=== PATIENT | female | born 1955 | race Caucasian/White ===

== ENCOUNTER → 2017-04-12 | Outpatient (CLI) | payer OTHER ==
[2017-01-10 12:09] VITALS: BP 137/69
[2017-04-12 11:18] LABS: ALANINE AMINOTRANSFERASE 38 Units/L (12-78); ALBUMIN 1.8 g/dL (3.4-5.0); ALKALINE PHOSPHATASE 133 Units/L (46-116); ASPARTATE AMINO TRANSFERASE 61 Units/L (15-37); BILIRUBIN,DIRECT 0.28 mg/dL (0-0.2); BLOOD UREA NITROGEN 6 mg/dL (7-18); CALCIUM 7.7 mg/dL (8.5-10.1); CHLORIDE 103 mmol/L (98-107); CREATININE 1.02 mg/dL (0.55-1.02); GLUCOSE 84 mg/dL (65-99); SODIUM 137 mmol/L (136-145); TOTAL PROTEIN 5.4 g/dL (6.4-8.2); eGFR BLACK RACES > 60 (>60); eGFR NON BLACK RACES 59 (>60)
[2017-04-12 11:26] LABS: BASOPHILS % (AUTO) 0.5 % (0.2-1.0); EOSINOPHILS # (AUTO) 0.1 x10^3/uL (0.0-0.2); EOSINOPHILS % (AUTO) 0.9 % (0.9-2.9); HEMATOCRIT 31.6 % (36.0-47.0); HEMOGLOBIN 10.6 g/dL (12.0-16.0); LYMPHOCYTES # (AUTO) 3.8 X10^3/uL (1.3-2.9); LYMPHOCYTES % (AUTO) 38.4 % (21.0-51.0); MEAN CORPUSCULAR HEMOGLOBIN 27.8 pg (27.0-34.0); MEAN CORPUSCULAR HGB CONC 33.4 g/dL (33.0-35.0); MEAN CORPUSCULAR VOLUME 83.1 fL (80.0-100.0); MEAN PLATELET VOLUME 8.2 fL (7.4-11.0); MONOCYTES # (AUTO) 0.9 x10^3/uL (0.3-0.8); MONOCYTES % (AUTO) 9.3 % (0.0-13.0); NEUTROPHILS # (AUTO) 5.1 x10^3/uL (2.2-4.8); NEUTROPHILS % (AUTO) 50.9 % (42.0-75.0); PLATELET COUNT 301 X10^3/uL (150.0-450.0); RED CELL DISTRIBUTION WIDTH 17.1 % (11.6-16.5)
== END ==
LOC: LAB 10:40
PROVIDERS: ATTEND Internal Medicine Gastroenterology
DX: R10.84 Generalized abdominal pain (principal); K50.10 Crohn's disease of large intestine without complications; R19.5 Other fecal abnormalities
CPT/HCPCS: 36415; 80048; 80076; 82270; 82705; 85025; 86140; 87045; 87205; 87427; 87493; 87899

== ENCOUNTER 2017-05-10 23:26 | Inpatient (IN) | payer OTHER ==
--- NOTE | 2017-05-11 00:20 | DR.GENAD ---
HPI - PCP Primary Care Physician: MOMO - Complaint/Symptoms Chief Complaint Doctors Comments: Patient's best friend states that patient has been home alone for three weeks and has note been taking care of herself. She states that she is weak and has poor hydration. She has Crohn's disease Chief Complaint:: PT C/O ABD PAIN FOR THE LAST 3 WEEKS - Source History Provided: Patient - Mode of Arrival Mode of Arrival: EMS - Timing Onset of Chief Complaint: 04/26/17 PMH - PMH Past Medical History: Yes Past Medical History: Anemia, Arthritis, COPD, Dyslipidemia, GERD, Hypertension , Hypothyroidism Past Medical History Comment: CROHNS DISEASE Past Surgical History: Yes Surgical History: Bowel Resection, Cholecystectomy - Family History History of Family Medical Conditions: Yes Family Medical History: Diabetes Mellitus, Hypertension - Social History Does any household member use tobacco: No Alcohol Use: None Do you use any recreational Drugs:: No Lives With: Alone Lives Where: Home - infectious screening In the last 2 months have you had wt loss of >10#?: NO Have you had fever, night sweats or hemotysis?: No Have you traveled outside the country in the last 6 months?: No Isolation: Standard ROS - Review of Systems Eyes: No Symptoms Reported ENTM: No Symptoms Reported Respiratoy: No Symptoms Reported Cardiovascular: See HPI. negative: Chest Pain Gastrointestinal/Abdominal: No Symptoms Reported, See HPI, Abdominal Pain Genitourinary: No Symptoms Reported Neurological: Emotional Problems Musculoskeletal: No Symptoms Reported Integumentary: Dryness Hematologic/Lymphatic: No Symptoms Reported Endocrine: No Symptoms Reported, Decreased Appetite Psychiatric: No Symptoms Reported All Other Systems: Reviewed and Negative PE - Vital Signs Vitals: Temperature 98.6 F Pulse Rate 98 Respiratory Rate 18 Blood Pressure [Right Arm] 137/69 Blood Pressure [Left Arm] 131/61 Blood Pressure 120/58 O2 Sat by Pulse Oximetry 97 - General Limitations: Language Barrier General Appearance: In No Apparent Distress, Obtunded - Head Head Exam: Normal Inspection, Atraumatic - Eyes Eye exam: Normal Appearance, EOMI - ENT ENT Exam: Normal Exam External Ear Exam: Normal External Inspection TM/Canal Exam: Bilateral Normal Nose Exam: Normal Nose Exam Mouth Exam: Other (dry) Throat Exam: Muffled Voice - Neck Neck Exam: Normal Inspection - Chest Chest Inspection: Normal Inspection - Respiratory Respiratory Exam: Normal Lung Sounds Bilat. negative: Accessory Muscle Use Respiratory Exam: Bilateral Clear to Auscultation - Cardiovascular Cardiovascular Exam: Regular Rate - Abdominal Exam Abdominal Exam: Soft, Dimnished Bowel Sounds Abdominal Tenderness: Diffuse - Extremities Extremities Exam: Edema - Back Back Exam: Normal Inspection - Neurologic Neurological Exam: Oriented X3 - Psychiatric Psychiatric Exam: Depressed, Flat Affect - Skin Skin Exam: Warm, Dry, Intact Course - Treatment Treatment: NS, Potassium - Reevaluation 1st: Improved - Consultation Called: 06:00 (agreed to admit for further evaluation and treatment) ROR - Labs Reviewed Laboratory Results Reviewed?: Yes (low potassium) Result Diagrams: 05/11/17 00:40 05/11/17 06:48 Laboratory: WBC 13.4 X10^3/uL (3.6-10.0) H 05/11/17 00:40 RBC 3.92 X10^6/uL (3.5-5.4) 05/11/17 00:40 Hgb 10.6 g/dL (12.0-16.0) L 05/11/17 00:40 Hct 31.5 % (36.0-47.0) L 05/11/17 00:40 MCV 80.5 fL (80.0-100.0) 05/11/17 00:40 MCH 27.0 pg (27.0-34.0) 05/11/17 00:40 MCHC 33.5 g/dL (33.0-35.0) 05/11/17 00:40 RDW 14.6 % (11.6-16.5) 05/11/17 00:40 Plt Count 236 X10^3/uL (150.0-450.0) 05/11/17 00:40 MPV 7.4 fL (7.4-11.0) 05/11/17 00:40 Neut % 62.0 % (42.0-75.0) 05/11/17 00:40 Lymph % 27.9 % (21.0-51.0) 05/11/17 00:40 [place] % 8.3 % (0.0-13.0) 05/11/17 00:40 Eos % 0.8 % (0.9-2.9) L 05/11/17 00:40 Baso % 1.0 % (0.2-1.0) 05/11/17 00:40 Neut # 8.3 x10^3/uL (2.2-4.8) H 05/11/17 00:40 Lymph # 3.7 X10^3/uL (1.3-2.9) H 05/11/17 00:40 [place] # 1.1 x10^3/uL (0.3-0.8) H 05/11/17 00:40 Eos # 0.1 x10^3/uL (0.0-0.2) 05/11/17 00:40 Baso # 0.1 X10^3/uL (0.0-0.1) 05/11/17 00:40 Absolute Nucleated RBC 0.0 /100WBC 05/11/17 00:40 Sodium 137 mmol/L (136-145) 05/11/17 06:48 Corrected Sodium TNP 05/11/17 06:48 Potassium 3.1 mmol/L (3.5-5.1) L 05/11/17 06:48 Chloride 99 mmol/L (98-107) 05/11/17 06:48 Carbon Dioxide 31.9 mmol/L (21-32) 05/11/17 06:48 BUN 9 mg/dL (7-18) 05/11/17 06:48 Creatinine 0.91 mg/dL (0.55-1.02) 05/11/17 06:48 Est GFR (MDRD) Af Amer > 60 (>60) 05/11/17 06:48 Est GFR (MDRD) Non-Af > 60 (>60) 05/11/17 06:48 Glucose 98 mg/dL (65-99) 05/11/17 06:48 Calcium 7.3 mg/dL (8.5-10.1) L 05/11/17 06:48 Corrected Calcium 8.8 mg/dL (8.5-10.1) 05/11/17 00:40 Total Bilirubin 1.00 mg/dL (0.2-1.0) 05/11/17 00:40 AST 52 Units/L (15-37) H 05/11/17 00:40 ALT 40 Units/L (12-78) 05/11/17 00:40 Alkaline Phosphatase 106 Units/L (46-116) 05/11/17 00:40 C-Reactive Protein 16.00 mg/L (0-3.0) H 05/11/17 00:40 Total Protein 4.5 g/dL (6.4-8.2) L 05/11/17 00:40 Albumin 1.5 g/dL (3.4-5.0) L 05/11/17 00:40 Globulin 3.0 g/dL (2.5-4.5) 05/11/17 00:40 Albumin/Globulin Ratio 0.5 Ratio (1.1-2.1) L 05/11/17 00:40 Amylase 21 Units/L (25-115) L 05/11/17 00:40 Lipase 19 Units/L (73-393) L 05/11/17 00:40 - XRAY XRAY Interpreted by: Radiologist (chest: No acute cardiopulmonary disease), Self (chest: heart size normal, no infiltrate) - Diagnosis Discharge Problem: Dehydration, Hypokalemia Crohns disease Qualifiers: Gastrointestinal tract location: unspecified location Digestive disease complication type: without complication Qualified Code(s): K50.90 - Crohn's disease, unspecified, without complications - Discharge Plan Condition: Stable - Follow ups/Referrals Follow ups/Referrals: Carmelo Davis [Primary Care Provider] - 3 days - Instructions
[2017-05-11] MEDS ORDERED: NS 1000 ML 1,000 ML ONE (00:43)
[2017-05-11 00:59] LABS: BASOPHILS # (AUTO) 0.1 X10^3/uL (0.0-0.1); EOSINOPHILS # (AUTO) 0.1 x10^3/uL (0.0-0.2); EOSINOPHILS % (AUTO) 0.8 % (0.9-2.9); HEMATOCRIT 31.5 % (36.0-47.0); HEMOGLOBIN 10.6 g/dL (12.0-16.0); LYMPHOCYTES # (AUTO) 3.7 X10^3/uL (1.3-2.9); LYMPHOCYTES % (AUTO) 27.9 % (21.0-51.0); MEAN CORPUSCULAR HGB CONC 33.5 g/dL (33.0-35.0); MEAN CORPUSCULAR VOLUME 80.5 fL (80.0-100.0); MEAN PLATELET VOLUME 7.4 fL (7.4-11.0); MONOCYTES # (AUTO) 1.1 x10^3/uL (0.3-0.8); MONOCYTES % (AUTO) 8.3 % (0.0-13.0); NEUTROPHILS # (AUTO) 8.3 x10^3/uL (2.2-4.8); PLATELET COUNT 236 X10^3/uL (150.0-450.0); RED BLOOD COUNT 3.92 X10^6/uL (3.5-5.4); RED CELL DISTRIBUTION WIDTH 14.6 % (11.6-16.5); WHITE BLOOD COUNT 13.4 X10^3/uL (3.6-10.0)
[2017-05-11] MEDS ORDERED: NS 1000 ML 1,000 ML IV SCH (01:00)
[2017-05-11 01:07] LABS: BLOOD UREA NITROGEN 8 mg/dL (7-18); CALCIUM 6.8 mg/dL (8.5-10.1); CARBON DIOXIDE 34.6 mmol/L (21-32); CHLORIDE 100 mmol/L (98-107); GLUCOSE 89 mg/dL (65-99); SODIUM 137 mmol/L (136-145); eGFR BLACK RACES > 60 (>60); eGFR NON BLACK RACES > 60 (>60)
[2017-05-11 01:13] LABS: ALANINE AMINOTRANSFERASE 40 Units/L (12-78); ALBUMIN 1.5 g/dL (3.4-5.0); ALKALINE PHOSPHATASE 106 Units/L (46-116); ASPARTATE AMINO TRANSFERASE 52 Units/L (15-37); COR CA(FOR HYPOALB) 8.8 mg/dL (8.5-10.1); TOTAL PROTEIN 4.5 g/dL (6.4-8.2)
[2017-05-11 01:16] LABS: AMYLASE 21 Units/L (25-115); LIPASE 19 Units/L (73-393)
[2017-05-11] MEDS ORDERED: POTASSIUM CHLORIDE INJ 40 MEQ VIAL IV ONE (01:24)
[2017-05-11] MEDS ORDERED: K-RIDER 10 MEQ/NS 100 ML 40 MEQ/400 ML BAG IV ONE (01:39)
[2017-05-11] MEDS ORDERED: ZOFRAN INJ 4 MG VIAL ONE (02:21)
[2017-05-11] MEDS ORDERED: ZOFRAN INJ 4 MG VIAL IVP ONE (02:28)
[2017-05-11] MEDS: K-RIDER 10 MEQ/NS 100 ML 10 MEQ/100 ML BAG IV PRN ×3 (02:48→05:54)
[2017-05-11] MEDS ORDERED: PHENERGAN INJ 25 MG IV ONE (03:05)
[2017-05-11] MEDS ORDERED: PHENERGAN INJ 25 MG ONE (03:06)
[2017-05-11] MEDS ORDERED: REGLAN INJ 10 MG VIAL IVP ONE (05:41)
[2017-05-11] MEDS ORDERED: REGLAN INJ 10 MG VIAL ONE (05:43)
--- NOTE | 2017-05-11 05:51 | RAD ---
Chest AP portable Indication: Dyspnea. Comparison: January 10, 2017. Findings: There is no pneumothorax or effusion. There is no consolidation. Heart size is normal. Por ta cath tip projects over the SVC. Postsurgical change and degenerative change of the right shoulder noted. Impression: No acute chest process. Reported By:
[2017-05-11 07:04] LABS: BLOOD UREA NITROGEN 9 mg/dL (7-18); CALCIUM 7.3 mg/dL (8.5-10.1); CARBON DIOXIDE 31.9 mmol/L (21-32); CHLORIDE 99 mmol/L (98-107); CREATININE 0.91 mg/dL (0.55-1.02); GLUCOSE 98 mg/dL (65-99); SODIUM 137 mmol/L (136-145); eGFR BLACK RACES > 60 (>60); eGFR NON BLACK RACES > 60 (>60)
[2017-05-11] MEDS ORDERED: REGLAN INJ 10 MG VIAL IVP PRN (07:36)
[2017-05-11] MEDS ORDERED: PHENERGAN INJ 25 MG IV PRN (08:37)
[2017-05-11] MEDS: POTASSIUM CHLORIDE IV SCH ×4 (09:23→16:03)
[2017-05-11] MEDS: NS IV SCH ×4 (09:23→16:03)
[2017-05-11] MEDS ORDERED: NS 1000 ML 1,000 ML IV ONE (09:32)
[2017-05-11] MEDS ORDERED: ALBUMIN HUMAN 25%- 100ML 200 ML IV ONE (09:34)
[2017-05-11] MEDS ORDERED: ZOFRAN INJ 4 MG VIAL IVP PRN (09:35)
[2017-05-11] MEDS: PROTONIX TAB 40 MG PO SCH ×2 (10:40→12:55)
[2017-05-11] MEDS: PEPCID 20 MG IV PREMIX* 20 MG/50 ML BAG IV SCH ×2 (10:40→20:56)
[2017-05-11] MEDS: MORPHINE SULFATE INJ 2 MG IVP PRN ×3 (10:41→20:54)
[2017-05-11 13:47] VITALS: BMI 26.7
--- NOTE | 2017-05-11 14:33 | DR.H&P ---
H&P - History & Physical for Day of: H&P Date: 05/11/17 - Allergies Allergies/Adverse Reactions: Allergies Allergy/AdvReac Type Severity Reaction Status Date / Time Nalbuphine [From Nubain] Allergy Intermediate n/v Verified 12/03/16 08:17 MS Penicillins [Penicillins] Allergy Mild RASH Verified 12/03/16 08:17 MS Azathioprine [From Imuran] Allergy Verified 12/03/16 08:17 MS Vancomycin [Vancomycin] Allergy RASH Verified 12/31/16 07:09 - History of Present Illness History of Present Illness: MS. BAI IS A 61 YEAR OLD PATIENT OF OURS WHO PRESENTED TO THE ER WITH COMPLAINTS OF DIFFUSE ABDOMINAL PAIN, WEAKNESS, AND DECREASED APPETITE FOR THREE WEEKS. PATIENT ALSO COMPLAINED OF VOMITING AND DIARRHEA. ON ARRIVAL TO ER, VITALS WERE 98.6, 98, 18, 97% RA, 137/69. ON EXAMINATION IN ER, PATIENT WAS NOTED WITH ABDOMINAL TENDERNESS AND DECREASED BOWEL SOUNDS. LABS AND X-RAYS WERE OBTAINED AND REPORTED THE FOLLOWING: CBC WNL EXCEPT WBC 13.4, HGB 10.5, HCT 31.5, POTASSIUM 2.8, CARBION DIOXIDE 34.6, CALCIUM 6.8, AST 52, CRP 16, TOTAL PROTEIN 4.5, ALBUMIN 1.5, AMULASE 21, LIPASE 19. XRAY WAS WNL. PATIENT WAS GIVEN ZOFRAN AND PHENERGAN FOR NAUSEA. PATIENT REMAINED WITHOUT RELIEF FROM NAUSEA. K-RIDERS WERE GIVEN TO CORRECT POTASSIUM. PATIENT ADMITTED FOR FURTHER OBSERVATION AND TREATMENT. PATIENT WILL BE STARTED ON IVF AND IV REGLAN AND WE WILL FOLLOW UP IN AM WITH LABS. - Past Medical History Past Medical History: Anemia, Arthritis, COPD, Dyslipidemia, GERD, Hypertension , Hypothyroidism Additional Medical History: Compression Fx's, Crohn's Disease, Pneumonia, Colitis, Muscle Weakness - Past Surgical History Surgical History: Bowel Resection, Cholecystectomy, Hysterectomy, Other Additional Surgical History: Kyphoplasty, Portacath insertion, Colostomy with reversal - Family History Family Medical History: Diabetes Mellitus, Hypertension - Social History Does patient currently use any type of tobacco product: No Have you used tobacco products in the last 12 months: No Type of Tobacco Use: None Does any household member use tobacco: No Alcohol Use: None Drug Use: None - Medications Home Medications: Fentanyl 25 Mcg/Hr [DURAGESIC PATCH 25 mcg/hr *] 1 patch TOP Q72H 05/11/17 [ History Confirmed 05/11/17] Furosemide [Furosemide] 1 tab PO BID PRN 05/11/17 [History Confirmed 05/11/17] Gi Cocktail [LEVSIN/Maalox/Lidoc Visc (GI COCKTAIL) *] 15 ml PO QID 05/11/17 [ History Confirmed 05/11/17] Ondansetron HCl [ZOFRAN TAB 4 MG *] 1 tab PO Q8H PRN 05/11/17 [History Confirmed 05/11/17] Oseltamivir Phosphate 1 cap PO BID 05/11/17 [History Confirmed 05/11/17] Ranitidine HCl [ZANTAC TAB 150 MG *] 1 tab PO BID 05/11/17 [History Confirmed ] Tizanidine HCl 1 tab PO Q6H 05/11/17 [History Confirmed 05/11/17] - Review of Systems Constitutional: Weakness Eyes: No Symptoms Reported. denies: See HPI, Pain, Vision Change, Conjunctivae Inflammation, Eyelid Inflammation, Redness, Other ENT: No Symptoms Reported. denies: See HPI, Ear Pain, Ear Discharge, Nose Pain , Nose Discharge, Nose Congestion, Mouth Pain, Mouth Swelling, Throat Pain, Throat Swelling, Other Respiratory: No Symptoms Reported. denies: See HPI, Cough, Dry, Shortness of Breath, Hemoptysis, SOB with Excertion, Pleuritic Pain, Sputum, Wheezing, Other Cardiovascular: Edema (LOWER EXTREMITY EDEMA). denies: No Symptoms Reported, Chest Pain, See HPI, Palpitations, Orthopnea, Paroxysmal Noc. Dyspnea, Light Headedness, Other Gastrointestinal: See HPI, Nausea, Vomiting, Diarrhea Genitourinary: No Symptoms Reported. denies: See HPI, Dysuria, Frequency, Incontinence, Hematuria, Retention, Other Musculoskeletal: No Symptoms Reported. denies: See HPI, Shoulder Pain, Arm Pain , Back Pain, Hand Pain, Leg Pain, Foot Pain, Neck Pain, Other Skin: No Symptoms Reported, Wound, Ecchymosis. denies: See HPI, Rash, Lesions, Jaundice, Bruising, Other Neurological: No Symptoms Reported. denies: See HPI, Weakness, Numbness, Incoordination, Change in Speech, Confusion, Seizures, Other - Physical Exam Vital Signs: Temperature 97.3 F Pulse Rate [Left Brachial] 113 Respiratory Rate 24 Blood Pressure [Left Arm] 134/83 O2 Sat by Pulse Oximetry 96 Oriented: Normal Eyes: Normal. negative: Blurred Vision, Diplopia, Discharge, Pain, Redness, Photophobia, Other Ear: Normal. negative: Right, Left, Swelling, Ecchymosis, Hemotypanum, Abrasion , Laceration Nose: Normal. negative: Injected, Discharge, Blood, Other Throat: Dry. negative: Normal, Tonsillar Hypertrophy, Red, Exudate, Other Respiratory: Clear Throughout Cardiovascular: Edema. negative: Normal, Tachycardia, Bradycardia, Irregular, S3, S4, Systolic, Diastolic, Murmur, Other : Normal. negative: Dysuria, Hematuria, Frequency, Discharge, Testicular Pain , Bleeding, , Other Auscultation: Bowel Sounds: Decreased Tenderness: Diffuse, Moderate Skin: Normal. negative: Decreased Turgur, Rash, Papular, Macular, Maculopapular , Vesicular, Pustular, Petechial, Red, Tender, Hot, Diaphoresis, Wound, Bruising , Ecchymosis, Other Musculoskeletal: Normal. negative: Right, Left, Shoulder, Clavicle, Arm, Elbow , Forearm, Wrist, Hand, Hip, Thigh, Knee, Leg, Ankle, Foot, Back:Thoracic, Back: Lumbar, Back:Midline, Back:Paraspinous, Pelvis, Swelling, Tender, Deformity, Pulse Deficit, Motor Deficit, Sensory Deficit, Instability, Crepitance Psychiatric: Depression. negative: Normal, Anxiety, Agitation, Other Mood Description: Calm, Flat. negative: Angry, Apathetic, Depressed, Fearful, Happy, Hostile, Sad, Suspicious, Withdrawn, Anxious, Appropriate, Labile Affect: Depressed, Normal. negative: Angry, Anxious, Flat, Hysterical, Quiet, Violent Speech Pattern: Clear. negative: Appropriate, Unclear, Inappropriate, Delayed, Slurred, Excessive, Aphasic, Artificially Ventilated - Assessment/Plan (1) Dehydration Status: Acute Plan: IVF, CONTINUE TO MONITOR LABS (2) Hypokalemia Status: Acute Plan: SUPPLEMENTAL POTASSIUM, IVF, MONITOR LABS (3) Nausea & vomiting Qualifiers: Vomiting type: bilious vomiting Vomiting Intractability: V Qualified Code (s): R11.14 - Bilious vomiting Status: Acute Plan: ZOFRAN IV, PHENERGAN IV, REGLAN IV, CONTINUE TO MONITOR (4) Crohns disease Qualifiers: Gastrointestinal tract location: unspecified location Digestive disease complication type: without complication Qualified Code(s): K50.90 - Crohn's disease, unspecified, without complications Status: Chronic Plan: CONTINUE HOME MEDICATION, CONTINUE TO MONITOR
[2017-05-11] MEDS ORDERED: DUONEB 0.5 MG/3 MG NEB PRN (15:02)
[2017-05-11] MEDS ORDERED: OXYCODONE HCL PO PRN (15:02)
[2017-05-11] MEDS: NEURONTIN CAP 300 MG PO SCH (20:55)
[2017-05-11] MEDS: SINGULAIR TAB 10 MG PO SCH (20:55)
[2017-05-11] MEDS: MAG-OX TAB PO SCH (20:55)
[2017-05-11] MEDS: ZOCOR TAB 40 MG PO SCH (20:55)
[2017-05-11] MEDS ORDERED: PATIENT'S HOME MEDICATION (Simvastatin [Simvastatin] 40 MG) PO SCH (21:00)
[2017-05-11] MEDS ORDERED: MESALAMINE 500 MG PO SCH (22:00)
[2017-05-11] MEDS: PENTASA CR PO SCH (23:13)
[2017-05-12] MEDS: NS IV SCH ×8 (00:10→18:00)
[2017-05-12] MEDS: POTASSIUM CHLORIDE IV SCH ×8 (00:10→18:00)
[2017-05-12 01:44] LABS: BILIRUBIN,URINE NEGATIVE (NEGATIVE); BLOOD/HEMOGLOBIN,URINE 1+ (NEGATIVE); GLUCOSE, URINE NEGATIVE (NEGATIVE); KETONES,URINE 2+ (NEGATIVE); LEUKOCYTE ESTERASE ,URINE 2+ (NEGATIVE); NITRITES,URINE POSITIVE (NEGATIVE); PROTEIN,URINE 1+ (NEGATIVE); UROBILINOGEN,URINE NORMAL (NORMAL)
[2017-05-12 01:53] LABS: APPEARANCE,URINE SLIGHTLY HAZY (CLEAR); BACTERIA,URINE 3+ /HPF (NEGATIVE); COLOR,URINE YELLOW (YELLOW); SQUAMOUS EPITHELIAL CELL,UR RARE /HPF (NEGATIVE)
[2017-05-12 05:49] LABS: ALANINE AMINOTRANSFERASE 30 Units/L (12-78); ALBUMIN 2.2 g/dL (3.4-5.0); ALKALINE PHOSPHATASE 81 Units/L (46-116); ASPARTATE AMINO TRANSFERASE 35 Units/L (15-37); BLOOD UREA NITROGEN 8 mg/dL (7-18); CALCIUM 7.2 mg/dL (8.5-10.1); CARBON DIOXIDE 30.6 mmol/L (21-32); CHLORIDE 106 mmol/L (98-107); COR CA(FOR HYPOALB) 8.6 mg/dL (8.5-10.1); CREATININE 0.73 mg/dL (0.55-1.02); GLUCOSE 74 mg/dL (65-99); SODIUM 141 mmol/L (136-145); TOTAL PROTEIN 4.5 g/dL (6.4-8.2); eGFR BLACK RACES > 60 (>60); eGFR NON BLACK RACES > 60 (>60)
[2017-05-12] MEDS: MORPHINE SULFATE INJ 2 MG IVP PRN ×5 (05:50→22:48)
[2017-05-12] MEDS: PENTASA CR PO SCH ×3 (05:51→21:15)
[2017-05-12 06:05] LABS: BASOPHILS % (AUTO) 0.4 % (0.2-1.0); EOSINOPHILS # (AUTO) 0.1 x10^3/uL (0.0-0.2); EOSINOPHILS % (AUTO) 0.7 % (0.9-2.9); HEMATOCRIT 28.8 % (36.0-47.0); HEMOGLOBIN 9.8 g/dL (12.0-16.0); LYMPHOCYTES # (AUTO) 3.6 X10^3/uL (1.3-2.9); LYMPHOCYTES % (AUTO) 35.6 % (21.0-51.0); MEAN CORPUSCULAR HEMOGLOBIN 27.3 pg (27.0-34.0); MEAN CORPUSCULAR VOLUME 80.5 fL (80.0-100.0); MEAN PLATELET VOLUME 7.4 fL (7.4-11.0); MONOCYTES # (AUTO) 0.9 x10^3/uL (0.3-0.8); MONOCYTES % (AUTO) 9.2 % (0.0-13.0); NEUTROPHILS # (AUTO) 5.5 x10^3/uL (2.2-4.8); NEUTROPHILS % (AUTO) 54.1 % (42.0-75.0); PLATELET COUNT 191 X10^3/uL (150.0-450.0); RED BLOOD COUNT 3.58 X10^6/uL (3.5-5.4); WHITE BLOOD COUNT 10.2 X10^3/uL (3.6-10.0)
[2017-05-12] MEDS: PEPCID 20 MG IV PREMIX* 20 MG/50 ML BAG IV SCH ×2 (08:52→21:15)
[2017-05-12] MEDS: MAG-OX TAB PO SCH ×2 (08:53→21:15)
[2017-05-12] MEDS: ALBUMIN HUMAN 25%- 100ML 100 ML IV SCH (08:53)
[2017-05-12] MEDS: WELLBUTRIN XL 150 MG (DAILY) PO SCH (08:53)
[2017-05-12] MEDS: AZULFIDINE PO SCH (08:53)
[2017-05-12] MEDS: NEURONTIN CAP 300 MG PO SCH ×2 (08:53→21:15)
[2017-05-12] MEDS: SYNTHROID 125 mcg TAB PO SCH (08:53)
[2017-05-12] MEDS: PROTONIX TAB 40 MG PO SCH (08:53)
[2017-05-12] MEDS: FORTAZ or TAZICEF INJ 2 GM in NS 50 ML IV + SPIKE MINIBAG* 50 ML IV SCH ×3 (10:16→21:15)
--- NOTE | 2017-05-12 10:35 | RAD ---
HISTORY: Right foot pain/bruising Study: Bb right radiographs three views Comparison: None Findings: The bones are mildly osteopenic. No displaced fracture or subluxation is identified, given these avina itations. There are mild degenerative changes of the ankle, mid foot as well as multiple interphalan geal joints. There is a tiny radiopaque density within the lateral soft tissues of the midfoot-foref oot, which is only appreciated on the oblique view and may be external to the patient. Remaining vis ualized soft tissues appear normal. IMPRESSION: Tiny radiopaque density along the lateral mid-forefoot is felt to be external to the patient. Clinic al correlation for foreign body recommended. Mild osteopenia and degenerative changes of the ankle, midfoot and forefoot as above. Otherwise, no acute osseous or soft tissue abnormality. Reported By:
--- NOTE | 2017-05-12 10:53 | PCM.PROG ---
Progress Note - Progress Note for Day of Date: 05/12/17 - Subjective Subjective: WAS AWAKE IN BED ON MORNING ROUNDS. SHE HAS COMPLAINTS OF WEAKNESS, NAUSEA/VOMITING, AND GENERALIZED PAIN THIS MORNING. PATIENT REPORTS HAVING DIARRHEA THROUGHOUT THE NIGHT. ON EXAMINATION, LUNGS ARE CTA. THERE IS REDNESS AND PURULENT DRAINAGE NOTED TO RIGHT EYE. PATIENT COMPLAINS OF PAIN TO BILATERAL LOWER EXTREMETIES. THERE IS EDEMA NOTED BILATERALLY WITH BRUISING TO LEFT LEG. BRUISING ALSO NOTED TO RIGHT FOOT. VITALS THIS MORING ARE 98.1, 102, 18, 91%, 127/69. LABS WNL EXCEPT WBC 10.2, HGB 9.8, HCT 28.8, POTASSIUM 3.3, CALCIUM 7.2, MAGNESIUM 1.6, CRP 10.9, TOTAL PROTEIN 4.5, ALBUMIN 2.2. URINALYSIS REPORTS WBC 10-15, LEUKOCYTED 2+, BACTERIA 3+, PROTEIN 1+. WE WILL START FORTAZ 2GM Q8H, TOBRADEX EYE DROPS, AND WILL OBTAIN A VENOUS DOPPLER OF BILATERAL EXTREMETIS AND A XRAY OF THE RIGHT FOOT. WE WILL ALSO CHECK CBC & CMP AND FOLLOW UP WITH PATIENT IN AM. - Past Medical Family Social History Past Med/Fam/Surg Hx: No changes since H&P Allergies: Allergies MS Nalbuphine [From Nubain] Allergy (Intermediate, Verified 12/03/16 08:17) n/v MS Penicillins [Penicillins] Allergy (Mild, Verified 12/03/16 08:17) RASH MS Azathioprine [From Imuran] Allergy (Verified 12/03/16 08:17) MS Vancomycin [Vancomycin] Allergy (Verified 12/31/16 07:09) RASH - Review of Systems ROS: No change since H&P - Vital Signs and I&O's Vital Signs: Temperature 98.1 F Pulse Rate [Left Brachial] 102 Respiratory Rate 18 Blood Pressure [Right Arm] 127/69 Blood Pressure [Left Arm] 125/76 O2 Sat by Pulse Oximetry 91 Intake and Output: Intake & Output 05/09/17 05/10/17 05/11/17 05/12/17 11:59 11:59 11:59 11:59 Intake Total 4053 Output Total 150 Balance 3903 - Physical Exam Oriented: Normal Eyes: Normal, Discharge (RIGHT EYE REDNESS, SWELLING, AND DISCHARGE ), Redness. negative: Blurred Vision, Diplopia, Pain, Photophobia, Other Ear: Normal. negative: Right, Left, Swelling, Ecchymosis, Hemotypanum, Abrasion , Laceration Nose: Normal. negative: Injected, Discharge, Blood, Other Throat: Dry. negative: Normal, Tonsillar Hypertrophy, Red, Exudate, Other Respiratory: Normal Cardiovascular: Edema. negative: Normal, Tachycardia, Bradycardia, Irregular, S3, S4, Systolic, Diastolic, Murmur, Other : Normal. negative: Dysuria, Hematuria, Frequency, Discharge, Testicular Pain , Bleeding, , Other Auscultation: Bowel Sounds: Decreased. negative: Normal, Bruit, Absent, Increased, High Pitched, Other Palpation: Normal Tenderness: Diffuse, Moderate Skin: Normal, Red, Tender (BILATERAL LOWER EXTREMITY EDEMA AND REDNESS ), Wound (RIGHT GREAT TOE ), Bruising Musculoskeletal: Normal, Leg, Swelling, Tender Psychiatric: Depression. negative: Normal, Anxiety, Agitation, Other Mood Description: Calm, Flat. negative: Angry, Apathetic, Depressed, Fearful, Happy, Hostile, Sad, Suspicious, Withdrawn, Anxious, Appropriate, Labile Affect: Depressed, Normal. negative: Angry, Anxious, Flat, Hysterical, Quiet, Violent Speech Pattern: Clear, Appropriate - Laboratory and Diagnostics Result Diagrams: 05/12/17 03:35 05/12/17 03:35 Labs: Laboratory WBC 10.2 X10^3/uL (3.6-10.0) H 05/12/17 03:35 RBC 3.58 X10^6/uL (3.5-5.4) 05/12/17 03:35 Hgb 9.8 g/dL (12.0-16.0) L 05/12/17 03:35 Hct 28.8 % (36.0-47.0) L 05/12/17 03:35 MCV 80.5 fL (80.0-100.0) 05/12/17 03:35 MCH 27.3 pg (27.0-34.0) 05/12/17 03:35 MCHC 34.0 g/dL (33.0-35.0) 05/12/17 03:35 RDW 15.0 % (11.6-16.5) 05/12/17 03:35 Plt Count 191 X10^3/uL (150.0-450.0) 05/12/17 03:35 MPV 7.4 fL (7.4-11.0) 05/12/17 03:35 Neut % 54.1 % (42.0-75.0) 05/12/17 03:35 Lymph % 35.6 % (21.0-51.0) 05/12/17 03:35 [place] % 9.2 % (0.0-13.0) 05/12/17 03:35 Eos % 0.7 % (0.9-2.9) L 05/12/17 03:35 Baso % 0.4 % (0.2-1.0) 05/12/17 03:35 Neut # 5.5 x10^3/uL (2.2-4.8) H 05/12/17 03:35 Lymph # 3.6 X10^3/uL (1.3-2.9) H 05/12/17 03:35 [place] # 0.9 x10^3/uL (0.3-0.8) H 05/12/17 03:35 Eos # 0.1 x10^3/uL (0.0-0.2) 05/12/17 03:35 Baso # 0.0 X10^3/uL (0.0-0.1) 05/12/17 03:35 Absolute Nucleated RBC 0.0 /100WBC 05/12/17 03:35 Sodium 141 mmol/L (136-145) 05/12/17 03:35 Corrected Sodium TNP 05/12/17 03:35 Potassium 3.3 mmol/L (3.5-5.1) L 05/12/17 03:35 Chloride 106 mmol/L (98-107) 05/12/17 03:35 Carbon Dioxide 30.6 mmol/L (21-32) 05/12/17 03:35 BUN 8 mg/dL (7-18) 05/12/17 03:35 Creatinine 0.73 mg/dL (0.55-1.02) 05/12/17 03:35 Est GFR (MDRD) Af Amer > 60 (>60) 05/12/17 03:35 Est GFR (MDRD) Non-Af > 60 (>60) 05/12/17 03:35 Glucose 74 mg/dL (65-99) 05/12/17 03:35 Calcium 7.2 mg/dL (8.5-10.1) L 05/12/17 03:35 Corrected Calcium 8.6 mg/dL (8.5-10.1) 05/12/17 03:35 Magnesium 1.6 mg/dL (1.7-2.9) L 05/12/17 03:35 Total Bilirubin 0.70 mg/dL (0.2-1.0) 05/12/17 03:35 AST 35 Units/L (15-37) 05/12/17 03:35 ALT 30 Units/L (12-78) 05/12/17 03:35 Alkaline Phosphatase 81 Units/L (46-116) 05/12/17 03:35 C-Reactive Protein 10.90 mg/L (0-3.0) H 05/12/17 03:35 Total Protein 4.5 g/dL (6.4-8.2) L 05/12/17 03:35 Albumin 2.2 g/dL (3.4-5.0) L 05/12/17 03:35 Globulin 2.3 g/dL (2.5-4.5) L 05/12/17 03:35 Albumin/Globulin Ratio 1.0 Ratio (1.1-2.1) L 05/12/17 03:35 Amylase 21 Units/L (25-115) L 05/11/17 00:40 Lipase 19 Units/L (73-393) L 05/11/17 00:40 Specimen Type Catherized urine 05/12/17 01:29 Urine Color Yellow (YELLOW) 05/12/17 01:29 Urine Appearance Slightly hazy (CLEAR) 05/12/17 01:29 Urine pH 6.0 (5.0 - 8.0) 05/12/17 01:29 Ur Specific [place] 1.015 (1.000-1.030) 05/12/17 01:29 Urine Protein 1+ (NEGATIVE) 05/12/17 01:29 Urine Glucose (UA) Negative (NEGATIVE) 05/12/17 01:29 Urine Ketones 2+ (NEGATIVE) 05/12/17 01:29 Urine Occult Blood 1+ (NEGATIVE) 05/12/17 01:29 Urine Nitrite Positive (NEGATIVE) 05/12/17 01:29 Urine Bilirubin Negative (NEGATIVE) 05/12/17 01:29 Urine Urobilinogen Normal (NORMAL) 05/12/17 01:29 Ur Leukocyte Esterase 2+ (NEGATIVE) 05/12/17 01:29 Urine RBC 2-6 /HPF (NEGATIVE) 05/12/17 01:29 Urine WBC 10-15 /HPF (NEGATIVE) 05/12/17 01:29 Ur Squamous Epith Cells Rare /HPF (NEGATIVE) 05/12/17 01:29 Urine Bacteria 3+ /HPF (NEGATIVE) 05/12/17 01:29 Ur Culture Indicated? Yes/culture set up 05/12/17 01:29 - Plan (1) Dehydration Status: Acute Plan: IVF, CONTINUE TO MONITOR LABS (2) Hypokalemia Status: Acute Plan: SUPPLEMENTAL POTASSIUM, IVF, MONITOR LABS (3) Nausea & vomiting Status: Acute Qualifiers: Vomiting type: bilious vomiting Vomiting Intractability: V Qualified Code (s): R11.14 - Bilious vomiting Plan: ZOFRAN IV, PHENERGAN IV, REGLAN IV, CONTINUE TO MONITOR (4) Hypokalemia Status: Acute Plan: POTASSIUM PROTOCOL, CONTINUE TO MONITOR (5) Lower extremity edema Status: Acute Plan: VENOUS DOPPLER, CONTINUE TO MONITOR (6) Hypoalbuminemia Status: Acute Plan: ALBUMIN 1 BOTTLE IV DAILY, CONTINUE TO MONITOR LABS (7) Crohns disease Status: Chronic Qualifiers: Gastrointestinal tract location: unspecified location Digestive disease complication type: without complication Qualified Code(s): K50.90 - Crohn's disease, unspecified, without complications Plan: CONTINUE HOME MEDICATION, CONTINUE TO MONITOR (8) GERD (gastroesophageal reflux disease) Status: Chronic Qualifiers: Esophagitis presence: esophagitis presence not specified Qualified Code(s) : K21.9 - Gastro-esophageal reflux disease without esophagitis Plan: CONTINUE HOME MEDICATION (9) Hyperlipidemia Status: Chronic Qualifiers: Hyperlipidemia type: mixed hyperlipidemia Qualified Code(s): E78.2 - Mixed hyperlipidemia Plan: CONTINUE HOME MEDICATION (10) Hypothyroidism Status: Chronic Qualifiers: Hypothyroidism type: acquired Qualified Code(s): E03.9 - Hypothyroidism, unspecified Plan: CONTINUE HOME MEDICATION
[2017-05-12] MEDS: TobraDEX OPHTH OINT RIGHTEYE SCH ×3 (11:05→21:16)
--- NOTE | 2017-05-12 12:04 | VAS ---
HISTORY: Lower extremity redness and edema Study: Bilateral lower extremity venous ultrasound Comparison: None TECHNIQUE: Multiple nur scale and color flow Doppler images of the deep venous system were obtaine d of the right and left lower extremity. FINDINGS: The deep venous system of the right and left lower extremities were evaluated from the level of the common femoral vein through the popliteal vein. Normal color flow and augmentation can be observed. In addition, normal compression is seen throughout the deep venous system. IMPRESSION: 1. Negative for DVT. Reported By:
[2017-05-12] MEDS: SINGULAIR TAB 10 MG PO SCH (21:15)
[2017-05-12] MEDS: ZOCOR TAB 40 MG PO SCH (21:15)
[2017-05-13] MEDS: PENTASA CR PO SCH ×3 (05:41→21:23)
[2017-05-13] MEDS: POTASSIUM CHLORIDE IV SCH ×4 (05:41→10:09)
[2017-05-13] MEDS: FORTAZ or TAZICEF INJ 2 GM in NS 50 ML IV + SPIKE MINIBAG* 50 ML IV SCH ×3 (05:41→21:21)
[2017-05-13] MEDS: TobraDEX OPHTH OINT RIGHTEYE SCH ×3 (05:41→21:23)
[2017-05-13] MEDS: NS IV SCH ×4 (05:41→10:09)
[2017-05-13] MEDS: MORPHINE SULFATE INJ 2 MG IVP PRN ×3 (05:41→16:56)
[2017-05-13 06:06] LABS: BASOPHILS % (AUTO) 0.4 % (0.2-1.0); EOSINOPHILS # (AUTO) 0.2 x10^3/uL (0.0-0.2); EOSINOPHILS % (AUTO) 2.3 % (0.9-2.9); HEMATOCRIT 27.5 % (36.0-47.0); HEMOGLOBIN 9.4 g/dL (12.0-16.0); LYMPHOCYTES # (AUTO) 3.3 X10^3/uL (1.3-2.9); LYMPHOCYTES % (AUTO) 39.7 % (21.0-51.0); MEAN CORPUSCULAR HEMOGLOBIN 27.6 pg (27.0-34.0); MEAN CORPUSCULAR VOLUME 81.1 fL (80.0-100.0); MEAN PLATELET VOLUME 9.5 fL (7.4-11.0); MONOCYTES # (AUTO) 0.7 x10^3/uL (0.3-0.8); MONOCYTES % (AUTO) 9.1 % (0.0-13.0); NEUTROPHILS % (AUTO) 48.5 % (42.0-75.0); PLATELET COUNT 245 X10^3/uL (150.0-450.0); RED BLOOD COUNT 3.39 X10^6/uL (3.5-5.4); WHITE BLOOD COUNT 8.2 X10^3/uL (3.6-10.0)
[2017-05-13 07:25] LABS: ALANINE AMINOTRANSFERASE 26 Units/L (12-78); ALBUMIN 2.2 g/dL (3.4-5.0); ALKALINE PHOSPHATASE 77 Units/L (46-116); ASPARTATE AMINO TRANSFERASE 31 Units/L (15-37); BLOOD UREA NITROGEN 8 mg/dL (7-18); CALCIUM 7.2 mg/dL (8.5-10.1); CARBON DIOXIDE 25.8 mmol/L (21-32); CHLORIDE 109 mmol/L (98-107); COR CA(FOR HYPOALB) 8.6 mg/dL (8.5-10.1); CREATININE 0.74 mg/dL (0.55-1.02); GLUCOSE 52 mg/dL (65-99); SODIUM 141 mmol/L (136-145); TOTAL PROTEIN 4.7 g/dL (6.4-8.2); eGFR BLACK RACES > 60 (>60); eGFR NON BLACK RACES > 60 (>60)
[2017-05-13] MEDS: NEURONTIN CAP 300 MG PO SCH ×2 (08:25→21:23)
[2017-05-13] MEDS: AZULFIDINE PO SCH (08:25)
[2017-05-13] MEDS: SYNTHROID 125 mcg TAB PO SCH (08:25)
[2017-05-13] MEDS: PEPCID 20 MG IV PREMIX* 20 MG/50 ML BAG IV SCH ×2 (08:25→21:21)
[2017-05-13] MEDS: PROTONIX TAB 40 MG PO SCH (08:25)
[2017-05-13] MEDS: WELLBUTRIN XL 150 MG (DAILY) PO SCH (08:25)
[2017-05-13] MEDS: MAG-OX TAB PO SCH ×2 (08:25→21:23)
[2017-05-13] MEDS: ALBUMIN HUMAN 25%- 100ML 100 ML IV SCH (08:56)
[2017-05-13] MEDS ORDERED: ALBUMIN HUMAN 25%- 100ML 100 ML IV ONE (10:46)
[2017-05-13] MEDS ORDERED: PHARMACY CONSULT - TPN XX SCH (11:00)
--- NOTE | 2017-05-13 12:05 | PCM.PROG ---
Progress Note - Subjective Subjective: WAS AWAKE, LYING IN BED ON MORNING ROUNDS. SHE CONTINUES WITH COMPLAINTS OF WEAKNESS AND GENERALIZED PAIN THIS MORNING. ON EXAMINATION, LUNGS ARE CTA. THERE IS DECREASED REDNESS AND PURULENT DRAINAGE NOTED TO RIGHT EYE. PATIENT CONTINUES WITH COMPLAINS OF PAIN TO BILATERAL LOWER EXTREMETIES. VITALS THIS MORING ARE 98.2, 105, 20, 97, 118/61. LABS WNL EXCEPT HGB 9.4, HCT 27.5, CALCIUM 7.2, CRP 8.8, TOTAL PROTEIN 4.7, ALBUMIN 2.2. A VENOUS DOPPLER WAS OBTAINED AND IS NEGATIVE FOR DVT. WE WILL CONTINUE FORTAZ 2GM Q8H, TOBRADEX EYE DROPS. WE WILL START CONSULT PHARMACY FOR TPN AND ADVANCE PATIENT TO FULL LIQUID DIET. WE WILL RECHECK CBC & CMP AND FOLLOW UP WITH PATIENT IN AM. - Past Medical Family Social History Past Med/Fam/Surg Hx: No changes since H&P Allergies: Allergies MS Nalbuphine [From Nubain] Allergy (Intermediate, Verified 12/03/16 08:17) n/v MS Penicillins [Penicillins] Allergy (Mild, Verified 12/03/16 08:17) RASH MS Azathioprine [From Imuran] Allergy (Verified 12/03/16 08:17) MS Vancomycin [Vancomycin] Allergy (Verified 12/31/16 07:09) RASH - Review of Systems ROS: No change since H&P - Vital Signs and I&O's Vital Signs: Temperature 98.2 F Pulse Rate [Right Brachial] 105 Pulse Rate [Left Brachial] 99 Respiratory Rate 20 Blood Pressure [Right Arm] 118/61 Blood Pressure [Left Arm] 116/74 O2 Sat by Pulse Oximetry 97 Intake and Output: Intake & Output 05/10/17 05/11/17 05/12/17 05/13/17 11:59 11:59 11:59 11:59 Intake Total 4053 3164 Output Total 150 Balance 3903 3164 - Physical Exam Oriented: Normal Eyes: Normal, Discharge (RIGHT EYE REDNESS, SWELLING, AND DISCHARGE ), Redness. negative: Blurred Vision, Diplopia, Pain, Photophobia, Other Ear: Normal. negative: Right, Left, Swelling, Ecchymosis, Hemotypanum, Abrasion , Laceration Nose: Normal. negative: Injected, Discharge, Blood, Other Throat: Dry. negative: Normal, Tonsillar Hypertrophy, Red, Exudate, Other Respiratory: Normal Cardiovascular: Edema. negative: Normal, Tachycardia, Bradycardia, Irregular, S3, S4, Systolic, Diastolic, Murmur, Other : Normal. negative: Dysuria, Hematuria, Frequency, Discharge, Testicular Pain , Bleeding, , Other Auscultation: Bowel Sounds: Decreased. negative: Normal, Bruit, Absent, Increased, High Pitched, Other Palpation: Normal Tenderness: Normal Skin: Normal, Red, Tender (BILATERAL LOWER EXTREMITY EDEMA AND REDNESS ), Wound (RIGHT GREAT TOE ), Bruising Musculoskeletal: Normal, Leg, Swelling, Tender Psychiatric: Depression. negative: Normal, Anxiety, Agitation, Other Mood Description: Calm, Flat. negative: Angry, Apathetic, Depressed, Fearful, Happy, Hostile, Sad, Suspicious, Withdrawn, Anxious, Appropriate, Labile Affect: Depressed, Normal. negative: Angry, Anxious, Flat, Hysterical, Quiet, Violent Speech Pattern: Clear, Appropriate - Laboratory and Diagnostics Result Diagrams: 05/13/17 04:57 05/13/17 07:00 Labs: 05/12/17 01:29 Urine,Catheterized Urine Culture - Preliminary Laboratory WBC 8.2 X10^3/uL (3.6-10.0) 05/13/17 04:57 RBC 3.39 X10^6/uL (3.5-5.4) L 05/13/17 04:57 Hgb 9.4 g/dL (12.0-16.0) L 05/13/17 04:57 Hct 27.5 % (36.0-47.0) L 05/13/17 04:57 MCV 81.1 fL (80.0-100.0) 05/13/17 04:57 MCH 27.6 pg (27.0-34.0) 05/13/17 04:57 MCHC 34.0 g/dL (33.0-35.0) 05/13/17 04:57 RDW 16.0 % (11.6-16.5) 05/13/17 04:57 Plt Count 245 X10^3/uL (150.0-450.0) 05/13/17 04:57 MPV 9.5 fL (7.4-11.0) 05/13/17 04:57 Neut % 48.5 % (42.0-75.0) 05/13/17 04:57 Lymph % 39.7 % (21.0-51.0) 05/13/17 04:57 [place] % 9.1 % (0.0-13.0) 05/13/17 04:57 Eos % 2.3 % (0.9-2.9) 05/13/17 04:57 Baso % 0.4 % (0.2-1.0) 05/13/17 04:57 Neut # 4.0 x10^3/uL (2.2-4.8) 05/13/17 04:57 Lymph # 3.3 X10^3/uL (1.3-2.9) H 05/13/17 04:57 [place] # 0.7 x10^3/uL (0.3-0.8) 05/13/17 04:57 Eos # 0.2 x10^3/uL (0.0-0.2) 05/13/17 04:57 Baso # 0.0 X10^3/uL (0.0-0.1) 05/13/17 04:57 Absolute Nucleated RBC 0.1 /100WBC 05/13/17 04:57 Sodium 141 mmol/L (136-145) 05/13/17 07:00 Corrected Sodium TNP 05/13/17 07:00 Potassium 4.2 mmol/L (3.5-5.1) 05/13/17 07:00 Chloride 109 mmol/L (98-107) H 05/13/17 07:00 Carbon Dioxide 25.8 mmol/L (21-32) 05/13/17 07:00 BUN 8 mg/dL (7-18) 05/13/17 07:00 Creatinine 0.74 mg/dL (0.55-1.02) 05/13/17 07:00 Est GFR (MDRD) Af Amer > 60 (>60) 05/13/17 07:00 Est GFR (MDRD) Non-Af > 60 (>60) 05/13/17 07:00 Glucose 52 mg/dL (65-99) L 05/13/17 07:00 Calcium 7.2 mg/dL (8.5-10.1) L 05/13/17 07:00 Corrected Calcium 8.6 mg/dL (8.5-10.1) 05/13/17 07:00 Magnesium 1.6 mg/dL (1.7-2.9) L 05/12/17 03:35 Total Bilirubin 0.80 mg/dL (0.2-1.0) 05/13/17 07:00 AST 31 Units/L (15-37) 05/13/17 07:00 ALT 26 Units/L (12-78) 05/13/17 07:00 Alkaline Phosphatase 77 Units/L (46-116) 05/13/17 07:00 C-Reactive Protein 8.80 mg/L (0-3.0) H 05/13/17 07:00 Total Protein 4.7 g/dL (6.4-8.2) L 05/13/17 07:00 Albumin 2.2 g/dL (3.4-5.0) L 05/13/17 07:00 Globulin 2.5 g/dL (2.5-4.5) 05/13/17 07:00 Albumin/Globulin Ratio 0.9 Ratio (1.1-2.1) L 05/13/17 07:00 Amylase 21 Units/L (25-115) L 05/11/17 00:40 Lipase 19 Units/L (73-393) L 05/11/17 00:40 Specimen Type Catherized urine 05/12/17 01:29 Urine Color Yellow (YELLOW) 05/12/17 01:29 Urine Appearance Slightly hazy (CLEAR) 05/12/17 01:29 Urine pH 6.0 (5.0 - 8.0) 05/12/17 01:29 Ur Specific [place] 1.015 (1.000-1.030) 05/12/17 01:29 Urine Protein 1+ (NEGATIVE) 05/12/17 01:29 Urine Glucose (UA) Negative (NEGATIVE) 05/12/17 01:29 Urine Ketones 2+ (NEGATIVE) 05/12/17 01:29 Urine Occult Blood 1+ (NEGATIVE) 05/12/17 01:29 Urine Nitrite Positive (NEGATIVE) 05/12/17 01:29 Urine Bilirubin Negative (NEGATIVE) 05/12/17 01:29 Urine Urobilinogen Normal (NORMAL) 05/12/17 01:29 Ur Leukocyte Esterase 2+ (NEGATIVE) 05/12/17 01:29 Urine RBC 2-6 /HPF (NEGATIVE) 05/12/17 01:29 Urine WBC 10-15 /HPF (NEGATIVE) 05/12/17 01:29 Ur Squamous Epith Cells Rare /HPF (NEGATIVE) 05/12/17 01:29 Urine Bacteria 3+ /HPF (NEGATIVE) 05/12/17 01:29 Ur Culture Indicated? Yes/culture set up 05/12/17 01:29 - Plan (1) Dehydration Status: Acute Plan: IVF, CONTINUE TO MONITOR LABS (2) Hypokalemia Status: Acute Plan: SUPPLEMENTAL POTASSIUM, IVF, MONITOR LABS (3) Nausea & vomiting Status: Acute Qualifiers: Vomiting type: bilious vomiting Vomiting Intractability: V Qualified Code (s): R11.14 - Bilious vomiting Plan: ZOFRAN IV, PHENERGAN IV, REGLAN IV, CONTINUE TO MONITOR (4) Lower extremity edema Status: Acute Plan: VENOUS DOPPLER, CONTINUE TO MONITOR (5) Hypoalbuminemia Status: Acute Plan: ALBUMIN 1 BOTTLE IV DAILY, CONTINUE TO MONITOR LABS (6) Crohns disease Status: Chronic Qualifiers: Gastrointestinal tract location: unspecified location Digestive disease complication type: without complication Qualified Code(s): K50.90 - Crohn's disease, unspecified, without complications Plan: CONTINUE HOME MEDICATION, CONTINUE TO MONITOR (7) GERD (gastroesophageal reflux disease) Status: Chronic Qualifiers: Esophagitis presence: esophagitis presence not specified Qualified Code(s) : K21.9 - Gastro-esophageal reflux disease without esophagitis Plan: CONTINUE HOME MEDICATION (8) Hyperlipidemia Status: Chronic Qualifiers: Hyperlipidemia type: mixed hyperlipidemia Qualified Code(s): E78.2 - Mixed hyperlipidemia Plan: CONTINUE HOME MEDICATION (9) Hypothyroidism Status: Chronic Qualifiers: Hypothyroidism type: acquired Qualified Code(s): E03.9 - Hypothyroidism, unspecified Plan: CONTINUE HOME MEDICATION
[2017-05-13] MEDS: [UNRECOGNIZED DRUG - NUTRITION] XX PRN ×5 (16:56)
[2017-05-13] MEDS: HumuLIN R SUBCUT PRN (21:21)
[2017-05-13] MEDS: SINGULAIR TAB 10 MG PO SCH (21:23)
[2017-05-13] MEDS: ZOCOR TAB 40 MG PO SCH (21:23)
[2017-05-13] MEDS: LIPOSYN III 20% 100ML 100 ML IV SCH (21:25)
[2017-05-14] MEDS: PENTASA CR PO SCH ×3 (05:49→23:50)
[2017-05-14] MEDS: FORTAZ or TAZICEF INJ 2 GM in NS 50 ML IV + SPIKE MINIBAG* 50 ML IV SCH (05:49)
[2017-05-14] MEDS: TobraDEX OPHTH OINT RIGHTEYE SCH ×3 (05:49→21:39)
[2017-05-14] MEDS: MORPHINE SULFATE INJ 2 MG IVP PRN ×4 (05:56→20:05)
[2017-05-14 06:22] LABS: BASOPHILS % (AUTO) 0.5 % (0.2-1.0); EOSINOPHILS # (AUTO) 0.2 x10^3/uL (0.0-0.2); EOSINOPHILS % (AUTO) 2.1 % (0.9-2.9); HEMATOCRIT 26.9 % (36.0-47.0); HEMOGLOBIN 8.8 g/dL (12.0-16.0); LYMPHOCYTES % (AUTO) 37.3 % (21.0-51.0); MEAN CORPUSCULAR HEMOGLOBIN 26.8 pg (27.0-34.0); MEAN CORPUSCULAR HGB CONC 32.8 g/dL (33.0-35.0); MEAN CORPUSCULAR VOLUME 81.8 fL (80.0-100.0); MONOCYTES # (AUTO) 0.9 x10^3/uL (0.3-0.8); MONOCYTES % (AUTO) 11.2 % (0.0-13.0); NEUTROPHILS % (AUTO) 48.9 % (42.0-75.0); PLATELET COUNT 166 X10^3/uL (150.0-450.0); RED BLOOD COUNT 3.29 X10^6/uL (3.5-5.4); RED CELL DISTRIBUTION WIDTH 15.4 % (11.6-16.5); WHITE BLOOD COUNT 8.1 X10^3/uL (3.6-10.0)
[2017-05-14 06:29] LABS: PREALBUMIN 7.8 mg/dL (18-35.7)
[2017-05-14 06:41] LABS: ALANINE AMINOTRANSFERASE 22 Units/L (12-78); ALBUMIN 2.5 g/dL (3.4-5.0); ALKALINE PHOSPHATASE 59 Units/L (46-116); ASPARTATE AMINO TRANSFERASE 21 Units/L (15-37); BLOOD UREA NITROGEN 5 mg/dL (7-18); CALCIUM 7.6 mg/dL (8.5-10.1); CARBON DIOXIDE 29.7 mmol/L (21-32); CHLORIDE 111 mmol/L (98-107); COR CA(FOR HYPOALB) 8.8 mg/dL (8.5-10.1); COR NA(FOR HYPERGLY) 146 mmol/L (136-145); CREATININE 0.89 mg/dL (0.55-1.02); GLUCOSE 152 mg/dL (65-99); MAGNESIUM 1.7 mg/dL (1.7-2.9); PHOSPHORUS 1.5 mg/dL (2.6-4.7); SODIUM 145 mmol/L (136-145); TOTAL PROTEIN 4.8 g/dL (6.4-8.2); TRIGLYCERIDES 19 mg/dL (0-150); eGFR BLACK RACES > 60 (>60); eGFR NON BLACK RACES > 60 (>60)
[2017-05-14] MEDS: PEPCID 20 MG IV PREMIX* 20 MG/50 ML BAG IV SCH ×2 (10:16→21:32)
[2017-05-14] MEDS: AZULFIDINE PO SCH (10:16)
[2017-05-14] MEDS: NEURONTIN CAP 300 MG PO SCH ×2 (10:16→21:31)
[2017-05-14] MEDS: WELLBUTRIN XL 150 MG (DAILY) PO SCH (10:17)
[2017-05-14] MEDS: PROTONIX TAB 40 MG PO SCH (10:17)
[2017-05-14] MEDS: MAG-OX TAB PO SCH ×2 (10:17→21:31)
[2017-05-14] MEDS: SYNTHROID 125 mcg TAB PO SCH (10:17)
[2017-05-14] MEDS: CIPRO IV 400 MG PREMIX* 400 MG/200 ML IV.SOLN. IV SCH ×2 (10:25→21:35)
[2017-05-14] MEDS: INVANZ INJ 1 GM VIAL 1 GM in NS 50 ML IV + SPIKE MINIBAG* 50 ML IV SCH (10:25)
--- NOTE | 2017-05-14 10:33 | PCM.PROG ---
Progress Note - Progress Note for Day of Date: 05/14/17 - Subjective Subjective: WAS AWAKE, LYING IN BED ON MORNING ROUNDS. SHE CONTINUES WITH COMPLAINTS OF WEAKNESS AND GENERALIZED PAIN. ON EXAMINATION, LUNGS ARE CTA. PATIENT STATES THAT PAIN TO BILATERAL LOWER EXTREMETIES HAS IMPROVED SOME. VITALS THIS MORING ARE 98.2, 93, 21, 94%, 143/76. LABS WNL EXCEPT HGB 8.8, HCT 26.9, CHLORIDE 111, BUN 5, CALCIUM 7.6, CRP 5.70, TOTAL PROTEIN 4.8, ALBUMIN 2.5. URINE CULTURE REPORTS E.COLI. BLOOD CULTURE REPORTS STAPHYLOCOCCUS CAPITIS. WE WILL START INVANZ DAILY AND CIPRO Q12H. PATIENT WILL CONTINUE ON TPN AND IVF. WE WILL RECHECK CBC & CMP AND FOLLOW UP WITH PATIENT IN AM. - Past Medical Family Social History Past Med/Fam/Surg Hx: No changes since H&P Allergies: Allergies MS Nalbuphine [From Nubain] Allergy (Intermediate, Verified 12/03/16 08:17) n/v MS Penicillins [Penicillins] Allergy (Mild, Verified 12/03/16 08:17) RASH MS Azathioprine [From Imuran] Allergy (Verified 12/03/16 08:17) MS Vancomycin [Vancomycin] Allergy (Verified 12/31/16 07:09) RASH - Review of Systems ROS: No change since H&P - Vital Signs and I&O's Vital Signs: Temperature 98.2 F Pulse Rate [Right Brachial] 93 Pulse Rate [Left Brachial] 99 Respiratory Rate 21 Blood Pressure [Right Arm] 143/76 Blood Pressure [Left Arm] 118/68 O2 Sat by Pulse Oximetry 94 Intake and Output: Intake & Output 05/11/17 05/12/17 05/13/17 05/14/17 11:59 11:59 11:59 11:59 Intake Total 4053 3164 1585 Output Total 150 Balance 3903 3164 1585 - Physical Exam Oriented: Normal Eyes: Normal, Discharge (RIGHT EYE REDNESS, SWELLING, AND DISCHARGE ), Redness. negative: Blurred Vision, Diplopia, Pain, Photophobia, Other Ear: Normal. negative: Right, Left, Swelling, Ecchymosis, Hemotypanum, Abrasion , Laceration Nose: Normal. negative: Injected, Discharge, Blood, Other Throat: Dry. negative: Normal, Tonsillar Hypertrophy, Red, Exudate, Other Respiratory: Normal Cardiovascular: Edema. negative: Normal, Tachycardia, Bradycardia, Irregular, S3, S4, Systolic, Diastolic, Murmur, Other : Normal. negative: Dysuria, Hematuria, Frequency, Discharge, Testicular Pain , Bleeding, , Other Auscultation: Bowel Sounds: Decreased. negative: Normal, Bruit, Absent, Increased, High Pitched, Other Palpation: Normal Tenderness: Normal Skin: Normal, Red, Tender (BILATERAL LOWER EXTREMITY EDEMA AND REDNESS ), Wound (RIGHT GREAT TOE ), Bruising Musculoskeletal: Normal, Leg, Swelling, Tender Psychiatric: Depression. negative: Normal, Anxiety, Agitation, Other Mood Description: Calm, Flat. negative: Angry, Apathetic, Depressed, Fearful, Happy, Hostile, Sad, Suspicious, Withdrawn, Anxious, Appropriate, Labile Affect: Depressed, Normal. negative: Angry, Anxious, Flat, Hysterical, Quiet, Violent Speech Pattern: Clear, Appropriate - Laboratory and Diagnostics Result Diagrams: 05/14/17 05:39 05/14/17 05:39 Labs: 05/12/17 01:29 Urine,Catheterized Urine Culture - Final Escherichia Coli Laboratory WBC 8.1 X10^3/uL (3.6-10.0) 05/14/17 05:39 RBC 3.29 X10^6/uL (3.5-5.4) L 05/14/17 05:39 Hgb 8.8 g/dL (12.0-16.0) L 05/14/17 05:39 Hct 26.9 % (36.0-47.0) L 05/14/17 05:39 MCV 81.8 fL (80.0-100.0) 05/14/17 05:39 MCH 26.8 pg (27.0-34.0) L 05/14/17 05:39 MCHC 32.8 g/dL (33.0-35.0) L 05/14/17 05:39 RDW 15.4 % (11.6-16.5) 05/14/17 05:39 Plt Count 166 X10^3/uL (150.0-450.0) 05/14/17 05:39 MPV 7.0 fL (7.4-11.0) L 05/14/17 05:39 Neut % 48.9 % (42.0-75.0) 05/14/17 05:39 Lymph % 37.3 % (21.0-51.0) 05/14/17 05:39 [place] % 11.2 % (0.0-13.0) 05/14/17 05:39 Eos % 2.1 % (0.9-2.9) 05/14/17 05:39 Baso % 0.5 % (0.2-1.0) 05/14/17 05:39 Neut # 4.0 x10^3/uL (2.2-4.8) 05/14/17 05:39 Lymph # 3.0 X10^3/uL (1.3-2.9) H 05/14/17 05:39 [place] # 0.9 x10^3/uL (0.3-0.8) H 05/14/17 05:39 Eos # 0.2 x10^3/uL (0.0-0.2) 05/14/17 05:39 Baso # 0.0 X10^3/uL (0.0-0.1) 05/14/17 05:39 Absolute Nucleated RBC 0.0 /100WBC 05/14/17 05:39 Sodium 145 mmol/L (136-145) 05/14/17 05:39 Corrected Sodium 146 mmol/L (136-145) H 05/14/17 05:39 Potassium 3.9 mmol/L (3.5-5.1) 05/14/17 05:39 Chloride 111 mmol/L (98-107) H 05/14/17 05:39 Carbon Dioxide 29.7 mmol/L (21-32) 05/14/17 05:39 BUN 5 mg/dL (7-18) L 05/14/17 05:39 Creatinine 0.89 mg/dL (0.55-1.02) 05/14/17 05:39 Est GFR (MDRD) Af Amer > 60 (>60) 05/14/17 05:39 Est GFR (MDRD) Non-Af > 60 (>60) 05/14/17 05:39 Glucose 152 mg/dL (65-99) H 05/14/17 05:39 Calcium 7.6 mg/dL (8.5-10.1) L 05/14/17 05:39 Corrected Calcium 8.8 mg/dL (8.5-10.1) 05/14/17 05:39 Phosphorus 1.5 mg/dL (2.6-4.7) L 05/14/17 05:39 Magnesium 1.7 mg/dL (1.7-2.9) 05/14/17 05:39 Total Bilirubin 0.80 mg/dL (0.2-1.0) 05/14/17 05:39 AST 21 Units/L (15-37) 05/14/17 05:39 ALT 22 Units/L (12-78) 05/14/17 05:39 Alkaline Phosphatase 59 Units/L (46-116) 05/14/17 05:39 C-Reactive Protein 5.70 mg/L (0-3.0) H 05/14/17 05:39 Total Protein 4.8 g/dL (6.4-8.2) L 05/14/17 05:39 Albumin 2.5 g/dL (3.4-5.0) L 05/14/17 05:39 Globulin 2.3 g/dL (2.5-4.5) L 05/14/17 05:39 Albumin/Globulin Ratio 1.1 Ratio (1.1-2.1) 05/14/17 05:39 Prealbumin 7.8 mg/dL (18-35.7) L 05/14/17 05:39 Triglycerides 19 mg/dL (0-150) 05/14/17 05:39 Amylase 21 Units/L (25-115) L 05/11/17 00:40 Lipase 19 Units/L (73-393) L 05/11/17 00:40 Specimen Type Catherized urine 05/12/17 01:29 Urine Color Yellow (YELLOW) 05/12/17 01:29 Urine Appearance Slightly hazy (CLEAR) 05/12/17 01:29 Urine pH 6.0 (5.0 - 8.0) 05/12/17 01:29 Ur Specific [place] 1.015 (1.000-1.030) 05/12/17 01:29 Urine Protein 1+ (NEGATIVE) 05/12/17 01:29 Urine Glucose (UA) Negative (NEGATIVE) 05/12/17 01:29 Urine Ketones 2+ (NEGATIVE) 05/12/17 01:29 Urine Occult Blood 1+ (NEGATIVE) 05/12/17 01:29 Urine Nitrite Positive (NEGATIVE) 05/12/17 01:29 Urine Bilirubin Negative (NEGATIVE) 05/12/17 01:29 Urine Urobilinogen Normal (NORMAL) 05/12/17 01:29 Ur Leukocyte Esterase 2+ (NEGATIVE) 05/12/17 01:29 Urine RBC 2-6 /HPF (NEGATIVE) 05/12/17 01:29 Urine WBC 10-15 /HPF (NEGATIVE) 05/12/17 01:29 Ur Squamous Epith Cells Rare /HPF (NEGATIVE) 05/12/17 01:29 Urine Bacteria 3+ /HPF (NEGATIVE) 05/12/17 01:29 Ur Culture Indicated? Yes/culture set up 05/12/17 01:29 - Plan (1) UTI (urinary tract infection) Status: Acute Qualifiers: Urinary tract infection type: site unspecified Hematuria presence: without hematuria Indwelling urinary catheter type: I Encounter type: E Qualified Code(s): N39.0 - Urinary tract infection, site not specified Plan: START INVANZ 1GM DAILY, CONTINUE TO MONITOR (2) Dehydration Status: Acute Plan: IVF, CONTINUE TO MONITOR LABS (3) Hypokalemia Status: Acute Plan: SUPPLEMENTAL POTASSIUM, IVF, MONITOR LABS (4) Nausea & vomiting Status: Acute Qualifiers: Vomiting type: bilious vomiting Vomiting Intractability: V Qualified Code (s): R11.14 - Bilious vomiting Plan: ZOFRAN IV, PHENERGAN IV, REGLAN IV, CONTINUE TO MONITOR (5) Lower extremity edema Status: Acute Plan: VENOUS DOPPLER, CONTINUE TO MONITOR (6) Hypoalbuminemia Status: Acute Plan: ALBUMIN 1 BOTTLE IV DAILY, CONTINUE TO MONITOR LABS (7) Crohns disease Status: Chronic Qualifiers: Gastrointestinal tract location: unspecified location Digestive disease complication type: without complication Qualified Code(s): K50.90 - Crohn's disease, unspecified, without complications Plan: CONTINUE HOME MEDICATION, CONTINUE TO MONITOR (8) GERD (gastroesophageal reflux disease) Status: Chronic Qualifiers: Esophagitis presence: esophagitis presence not specified Qualified Code(s) : K21.9 - Gastro-esophageal reflux disease without esophagitis Plan: CONTINUE HOME MEDICATION (9) Hyperlipidemia Status: Chronic Qualifiers: Hyperlipidemia type: mixed hyperlipidemia Qualified Code(s): E78.2 - Mixed hyperlipidemia Plan: CONTINUE HOME MEDICATION (10) Hypothyroidism Status: Chronic Qualifiers: Hypothyroidism type: acquired Qualified Code(s): E03.9 - Hypothyroidism, unspecified Plan: CONTINUE HOME MEDICATION
[2017-05-14] MEDS: ALBUMIN HUMAN 25%- 100ML 100 ML IV SCH (14:15)
[2017-05-14] MEDS: HumuLIN R SUBCUT PRN (14:37)
[2017-05-14] MEDS ORDERED: POTASSIUM PHOSPHATE IV ONE ×2 (15:00)
[2017-05-14] MEDS ORDERED: NS IV ONE ×2 (15:00)
[2017-05-14] MEDS: ZOCOR TAB 40 MG PO SCH (21:31)
[2017-05-14] MEDS: SINGULAIR TAB 10 MG PO SCH (21:32)
[2017-05-14] MEDS: LIPOSYN III 20% 100ML 100 ML IV SCH (21:36)
[2017-05-14] MEDS: [UNRECOGNIZED DRUG - NUTRITION] XX PRN ×5 (21:37)
[2017-05-15 05:29] LABS: ALANINE AMINOTRANSFERASE 19 Units/L (12-78); ALBUMIN 2.6 g/dL (3.4-5.0); ALKALINE PHOSPHATASE 56 Units/L (46-116); ASPARTATE AMINO TRANSFERASE 19 Units/L (15-37); BLOOD UREA NITROGEN 4 mg/dL (7-18); CALCIUM 7.5 mg/dL (8.5-10.1); CARBON DIOXIDE 29.4 mmol/L (21-32); CHLORIDE 109 mmol/L (98-107); COR CA(FOR HYPOALB) 8.6 mg/dL (8.5-10.1); COR NA(FOR HYPERGLY) 145 mmol/L (136-145); CREATININE 0.64 mg/dL (0.55-1.02); GLUCOSE 150 mg/dL (65-99); SODIUM 144 mmol/L (136-145); TOTAL PROTEIN 4.8 g/dL (6.4-8.2); eGFR BLACK RACES > 60 (>60); eGFR NON BLACK RACES > 60 (>60)
[2017-05-15] MEDS: PENTASA CR PO SCH (05:52)
[2017-05-15] MEDS: TobraDEX OPHTH OINT RIGHTEYE SCH (05:53)
[2017-05-15 06:16] LABS: BASOPHILS % (AUTO) 0.4 % (0.2-1.0); EOSINOPHILS # (AUTO) 0.1 x10^3/uL (0.0-0.2); EOSINOPHILS % (AUTO) 1.3 % (0.9-2.9); LYMPHOCYTES # (AUTO) 2.1 X10^3/uL (1.3-2.9); LYMPHOCYTES % (AUTO) 26.3 % (21.0-51.0); MEAN CORPUSCULAR HEMOGLOBIN 27.5 pg (27.0-34.0); MEAN CORPUSCULAR HGB CONC 33.3 g/dL (33.0-35.0); MEAN CORPUSCULAR VOLUME 82.7 fL (80.0-100.0); MEAN PLATELET VOLUME 7.6 fL (7.4-11.0); MONOCYTES # (AUTO) 0.9 x10^3/uL (0.3-0.8); MONOCYTES % (AUTO) 10.9 % (0.0-13.0); NEUTROPHILS # (AUTO) 4.8 x10^3/uL (2.2-4.8); NEUTROPHILS % (AUTO) 61.1 % (42.0-75.0); PLATELET COUNT 140 X10^3/uL (150.0-450.0); RED BLOOD COUNT 3.27 X10^6/uL (3.5-5.4); RED CELL DISTRIBUTION WIDTH 15.6 % (11.6-16.5); WHITE BLOOD COUNT 7.9 X10^3/uL (3.6-10.0)
[2017-05-15] MEDS: PEPCID 20 MG IV PREMIX* 20 MG/50 ML BAG IV SCH (10:17)
[2017-05-15] MEDS: WELLBUTRIN XL 150 MG (DAILY) PO SCH (10:17)
[2017-05-15] MEDS: INVANZ INJ 1 GM VIAL 1 GM in NS 50 ML IV + SPIKE MINIBAG* 50 ML IV SCH (10:17)
[2017-05-15] MEDS: CIPRO IV 400 MG PREMIX* 400 MG/200 ML IV.SOLN. IV SCH (10:17)
[2017-05-15] MEDS: NEURONTIN CAP 300 MG PO SCH (10:18)
[2017-05-15] MEDS: MAG-OX TAB PO SCH (10:18)
[2017-05-15] MEDS: AZULFIDINE PO SCH (10:18)
[2017-05-15] MEDS: PROTONIX TAB 40 MG PO SCH (10:19)
[2017-05-15] MEDS: SYNTHROID 125 mcg TAB PO SCH (10:19)
[2017-05-15] MEDS: ALBUMIN HUMAN 25%- 100ML 100 ML IV SCH (10:59)
[2017-05-15] MEDS ORDERED: BACTRIM DS TAB PO ONE (11:33)
[2017-05-15 12:51] VITALS: BP 132/91
[2017-05-15] MEDS ORDERED: SNACK - Diabetic Appropriate PO SCH (20:00)
--- NOTE | 2017-05-20 16:51 | DR.CARTERD ---
- Discharge Summary for: Discharge Summary for Date of:: 05/15/17 - Admission Date Date of Admission: 05/11/17 - Admission Diagnoses Admission Diagnosis: (1) Dehydration (2) Hypokalemia (3) Nausea & vomiting (4) Crohns disease - Discharge Date Discharge Date: 05/15/17 - Discharge Diagnoses Discharge Diagnosis: (1) Sepsis- Staphyloccocus Capitis (2) E-coli UTI (3) Dehydration (4) Hypokalemia (5) Hypoalbuminemia (6) Lower extremity edema (7) Nausea & Vomiting (8) Crohns disease (9) GERD (gastroesophageal reflux disease) (10) Hyperlipidemia (11) Hypothyroidism - Hospital Course Hospital Course: DAY ONE OF HOSPITAL STAY, MS. BAI, A 61 YEAR OLD PATIENT OF OURS, PRESENTED TO THE ER WITH COMPLAINTS OF DIFFUSE ABDOMINAL PAIN, WEAKNESS, AND DECREASED APPETITE FOR THREE WEEKS. PATIENT ALSO COMPLAINED OF VOMITING AND DIARRHEA. ON ARRIVAL TO ER, VITALS WERE 98.6, 98, 18, 97% RA, 137/69. ON EXAMINATION IN ER, PATIENT WAS NOTED WITH ABDOMINAL TENDERNESS AND DECREASED BOWEL SOUNDS. LABS AND X-RAYS WERE OBTAINED AND REPORTED THE FOLLOWING: CBC WNL EXCEPT WBC 13.4, HGB 10.5, HCT 31. CMP WNL EXCEPT: POTASSIUM 2.8, CARBON DIOXIDE 34.6, CALCIUM 6.8, AST 52, CRP 16, TOTAL PROTEIN 4.5, ALBUMIN 1.5, AMYLASE 21, LIPASE 19. XRAY WAS WNL. PATIENT WAS GIVEN ZOFRAN AND PHENERGAN FOR NAUSEA. PATIENT REMAINED WITHOUT RELIEF FROM NAUSEA. K-RIDERS WERE GIVEN TO CORRECT POTASSIUM. PATIENT ADMITTED FOR FURTHER OBSERVATION AND TREATMENT. PATIENT STARTED ON IVF AND IV REGLAN AND MONITORED. DAY TWO OF HOSPITAL STAY, WAS AWAKE IN BED ON MORNING ROUNDS. SHE HAD COMPLAINTS OF WEAKNESS, NAUSEA/VOMITING, AND GENERALIZED PAIN. PATIENT REPORTED HAVING DIARRHEA THROUGHOUT THE NIGHT. ON EXAMINATION, LUNGS WERE CTA. THERE WAS REDNESS AND PURULENT DRAINAGE NOTED TO RIGHT EYE. PATIENT COMPLAINED OF PAIN TO BILATERAL LOWER EXTREMETIES. EDEMA NOTED BILATERALLY WITH BRUISING TO LEFT LEG. BRUISING ALSO NOTED TO RIGHT FOOT. VITALS WERE 98.1, 102, 18, 91%, 127/69. LABS WNL EXCEPT WBC 10.2, HGB 9.8, HCT 28.8, POTASSIUM 3.3, CALCIUM 7.2 , MAGNESIUM 1.6, CRP 10.9, TOTAL PROTEIN 4.5, ALBUMIN 2.2. URINALYSIS REPORTS WBC 10-15, LEUKOCYTED 2+, BACTERIA 3+, PROTEIN 1+. WE STARTED FORTAZ 2GM Q8H, TOBRADEX EYE DROPS, AND OBTAINED A VENOUS DOPPLER OF BILATERAL EXTREMETIS AND A XRAY OF THE RIGHT FOOT. DAY THREE OF HOSPITAL STAY, WAS AWAKE, LYING IN BED ON MORNING ROUNDS. SHE CONTINUED WITH COMPLAINTS OF WEAKNESS AND GENERALIZED PAIN. ON EXAMINATION, LUNGS WERE CTA. THERE WAS DECREASED REDNESS AND PURULENT DRAINAGE NOTED TO RIGHT EYE. PATIENT CONTINUED WITH COMPLAINTS OF PAIN TO BILATERAL LOWER EXTREMITIES. VITALS WERE 98.2, 105, 20, 97, 118/61. LABS WNL EXCEPT HGB 9.4, HCT 27.5, CALCIUM 7.2, CRP 8.8, TOTAL PROTEIN 4.7, ALBUMIN 2.2. A VENOUS DOPPLER WAS OBTAINED AND WAS NEGATIVE FOR DVT. WE CONTINUED FORTAZ 2GM Q8H, TOBRADEX EYE DROPS. WE CONSULTED PHARMACY FOR TPN AND ADVANCED PATIENT TO FULL LIQUID DIET. DAY FOUR OF HOSPITAL STAY, BILATERAL LOWER EXTREMITY EDEMA HAD IMPROVED SOME. VITALS WERE 98.2, 93, 21, 94%, 143/76. LABS WNL EXCEPT HGB 8.8, HCT 26.9, CHLORIDE 111, BUN 5, CALCIUM 7.6, CRP 5.70, TOTAL PROTEIN 4.8, ALBUMIN 2.5. FINAL URINE CULTURE REPORTED E.COLI. FINAL BLOOD CULTURE REPORTED STAPHYLOCOCCUS CAPITIS. WE STARTED INVANZ AND CIPRO ACCORDING TO SENSITIVITY REPORT. PATIENT CONTINUED ON TPN AND IVF. DAY FIVE OF HOSPITAL STAY, PATIENT WAS FEELING BETTER UPON ROUNDS. EDEMA HAD IMPROVED TO LOWER EXTREMITIES. HYDRATION STATUS IMPROVED. WE PLANNED FOR DISCHARGE. INSTRUCTIONS FOR MEDICATIONS AND FOLLOW UP WERE GIVEN TO PATIENT AND FAMILY, BOTH VOICED UNDERSTANDING. PATIENT IS TO CONTINUE A COURSE OF BACTRIM DS PO FOR TREATMENT OF E-COLI UTI AND STAPHYLOCOCCUS CAPITIS SEPSIS. PATIENT DISCHARGED HOME IN STABLE CONDITION WITH FAMILY. - Discharge Medications Discharge Medications: Fentanyl 25 Mcg/Hr [DURAGESIC PATCH 25 mcg/hr *] 1 patch TOP Q72H 05/11/17 [ History] Furosemide 1 tab PO BID PRN 05/11/17 [History] Gi Cocktail [LEVSIN/Maalox/Lidoc Visc (GI COCKTAIL) *] 15 ml PO QID 05/11/17 [ History] Ondansetron HCl [ZOFRAN TAB 4 MG *] 1 tab PO Q8H PRN 05/11/17 [History] Oseltamivir Phosphate 1 cap PO BID 05/11/17 [History] Ranitidine HCl [ZANTAC TAB 150 MG *] 1 tab PO BID 05/11/17 [History] Tizanidine HCl 1 tab PO Q6H 05/11/17 [History] Sulfamethoxazole-Trimethoprim [BACTRIM DS TAB 800/160 MG *] 1 tab PO BID #28 tab 05/15/17 [Rx] - Discharge Disposition Discharge Disposition: PATIENT IS TO FOLLOW UP AT OUR OFFICE ON 05/23/17.
== END 2017-05-15 14:00 | disposition home or self-care (01) | DRG 872 ==
LOC: ER 23:26 → MED/SURG 05-11 07:28
PROVIDERS: ADMIT Obstetrics & Gynecology Obstetrics; ATTEND Internal Medicine
DX: A41.1 Sepsis due to other specified staphylococcus (principal); K50.90 Crohn's disease, unspecified, without complications; N39.0 Urinary tract infection, site not specified; E86.0 Dehydration; E87.6 Hypokalemia; E78.2 Mixed hyperlipidemia; K21.9 Gastro-esophageal reflux disease without esophagitis; I10 Essential (primary) hypertension; E03.8 Other specified hypothyroidism; R11.14 Bilious vomiting; R60.0 Localized edema; M79.605 Pain in left leg; M79.604 Pain in right leg; B96.29 Other Escherichia coli [E. coli] as the cause of diseases classified elsewhere; R26.89 Other abnormalities of gait and mobility
CPT/HCPCS: 36415; 36591; 71010; 73630; 80048; 80053; 81001; 82150; 83690; 83735; 84100; 84132; 84134; 84478; 85025; 86140; 87040; 87076; 87077; 87086; 87088; 87186; 93970; 94760; 96365; 96367; 96374; 96375; 99284; A4222; B5200; P9047; S0028; S0106; J0713; J0744; J1335; J1815; J2270; J2405; J2550; J2765; J3480; J3490